=== PATIENT | male | born 1970 | race Caucasian/White ===

== ENCOUNTER 2019-08-03 14:35 | Emergency (ER) | payer OTHER, SELFPAY ==
[2019-08-03 14:37] VITALS: BP 147/79; PULSE 80; RESP 17; TEMP 36.8; O2SAT 96; BMI 24.6
--- NOTE | 2019-08-03 14:48 | CT_ITS ---
STUDY: CT BRAIN WITHOUT CONTRAST REASON FOR EXAM: Male, 49 years old. HEADACHE SINCE THURSDAY RADIATION DOSAGE (If Supplied By Facility): CTDIvol = ( 60.81 ) mGy, DLP = ( 998.67 ) mGycm TECHNIQUE: Transaxial CT imaging of the brain was performed without administration of intravenous contrast material. Individualized dose optimization techniques were used for this CT. COMPARISON: No relevant priors. FINDINGS: Normal soft tissue structures. Normal calvarium. Normal size ventricles and extra-axial spaces for the patient''s age. Normal white matter tracts of the cerebral hemispheres. Normal basal ganglia and thalami. Normal brainstem. Normal cerebellum. There is no intracranial hemorrhage. There are no findings of an acute ischemic infarction. There is a 1.1 cm polyp or retention cyst in the left maxillary sinus. A similar appearing nodular density measuring 8.4 mm is seen in the lateral aspect of the right maxillary sinus. CT/Brain/Head without Contrast IMPRESSION: Normal unenhanced CT scan of the brain. Findings suggestive of a mucosal polyps or retention cysts in the maxillary sinuses. Electronically Signed: William Nguyen, at 15:30 EDT , Service support ,
--- NOTE | 2019-08-03 14:49 | ED.VIS.GEN ---
History of Present Illness Chief Complaint: Headache Informant: Patient Onset: Days - 5 days ago Context: Gradual Onset Timing: Waxes and wanes Current Severity: Mild Maximum Severity: Moderate Narrative: Patient presents with headache ongoing for the past 5 or 6 days. Is primarily frontal region and some of the posterior. He reports occasional dizziness when he is standing. He is had some mild nausea. He denies light sensitivity. He reports very mild sinus congestion. No fever or chills. No cough. No recent head injury. Past Medical History - Allergies and Home Meds Allergies/Adverse Reactions: Allergies No Known Allergies Allergy (Verified 08/03/19 14:37) Primary Care Physician: Care Physician,No Primary [Primary Care Provider] - Past Medical History: None Review of Systems General: Denies: Chills, Fever Eyes: Denies: Visual changes - bilaterally ENT: Denies: Bilateral ear pain Cardiovascular: Denies: Chest pain Respiratory: Denies: Dyspnea, Cough Gastrointestinal: Reports: Nausea. Denies: Abdominal pain Genitourinary: Denies: Dysuria Musculoskeletal: Denies: Extremity Pain Skin: Denies: Rash, Wounds Neurological: Reports: Headache. Denies: Weakness, Parasthesia Hematologic: Denies: Easy bruising, Easy bleeding Allergy: Denies: Uticaria Physical Exam Vital Signs/Narrative: Vital Signs Temp Pulse Resp BP Pulse Ox 08/03/19 14:37 98.3 F 80 17 147/79 H 96 Inital Vital Signs reviewed: Yes General: Well nourished, Well developed Head: Normocephalic Eyes: Perrl, EOMI ENT: Moist mucous membranes Neck: Supple, - - No meningismus Cardiovascular: Regular rate, Regular rhythm Respiratory: No distress, CTA bilaterally Abdomen: Soft, Nontender Back: Nontender Extremities: Nontender Skin: Normal color, No rash Neurological: Alert, Oriented x3, Normal Strength, Normal Sensation Psychological: Normal affect Diagnostic/Tx/Re-eval Impressions Brain CT 08/03/19 14:48 IMPRESSION: Normal unenhanced CT scan of the brain. Findings suggestive of a mucosal polyps or retention cysts in the maxillary sinuses. Electronically Signed: William Nguyen, at 15:30 EDT , Service support , 08/03/19 14:48 Brain/Head without Contrast [CT] Stat - Medical Decision Making Patient was given Toradol, Reglan, Benadryl, and a liter of IV fluids. On repeat evaluation he feels much improved. He will be discharged to home at this time. He can use Tylenol or ibuprofen as needed for headache at home. ED Disposition - Plan for ED Patient: Disposition: Home or Assisted Living Diagnosis: Cephalgia Instructions: ED Headache Unspecified Referrals: Raymundo Montalvo MD [STAFF PHYSICIAN] - As Needed
[2019-08-03] MEDS: Metoclopramide 10 MG/2 ML Vial IV (15:02)
[2019-08-03] MEDS: Ketorolac 30 MG/ML Syringe IV (15:02)
[2019-08-03] MEDS: DiphenhydrAMINE 50 MG/ML Syringe 25 MG IV (15:03)
[2019-08-03] MEDS: 0.9% Normal Saline 1,000 ML 1000 ML IV (15:07)
[2019-08-03 15:51] VITALS: BP 117/71; PULSE 64; RESP 15; O2SAT 98
== END 2019-08-03 15:53 | disposition home or self-care (01) ==
LOC: ED 15:40
PROVIDERS: Emergency Provider Emergency Medicine
DX: R51 Headache (principal); R42 Dizziness and giddiness; R11.0 Nausea; R09.81 Nasal congestion
CPT/HCPCS: 70450; 96361; 96374; 96375; 99282; J7030